=== PATIENT | female | born 1940 | race Caucasian/White ===

== ENCOUNTER → 2023-12-07 13:32 | Outpatient (REF) | payer MEDICARE, SELFPAY | LOC: HWRAD 13:32 | PROVIDERS: ATTENDING PHYSICIAN Internal Medicine Rheumatology; FAMILY PHYSICIAN Internal Medicine Geriatric Medicine | DX: M18.9 Osteoarthritis of first carpometacarpal joint, unspecified (principal); M47.816 Spondylosis without myelopathy or radiculopathy, lumbar region | CPT/HCPCS: 72110; 73130 ==

== ENCOUNTER 2024-04-14 10:27 | Emergency (ER) | payer MEDICARE, SELFPAY ==
[2024-04-14 10:32] VITALS: BP 173/73
--- NOTE | 2024-04-14 11:30 | ED.MUSCINJ ---
HPI-Injury
General
Chief Complaint: Musculo-Skeletal Complaint
Source: patient
Exam Limitations: none
Time Seen by Provider: 04/14/24 11:04
History of Present Illness-Injury
Initial Injury comments:
83-year-old female presents complaining of right leg pain that radiates from the down to the knee into the foot. This started after an exercise class earlier this week. The pain is centered at the knee. She also notes that her top of her right
foot feels numb. No headache no fever. No significant back pain no bowel or bladder dysfunction. She is ambulatory. No other complaints at this time
Past History
Past History
ED Past Medical History: GERD, Psychiatric and Other
ED Past Surgical History: Gynecological and Tonsilectomy
Social History
Tobacco: Non-smoker
Phy Exam
Physical Exam
Physical Exam:
General: Well-appearing female no acute respiratory distress
HEENT normocephalic atraumatic
Musculoskeletal exam: Patient is nonspecifically tender over the knee. She has good range of motion of the right hip knee and foot.
Neurologic exam: Good sensation right foot good strength to the lower extremities bilaterally
Vascular: No calf pain 2+ dorsalis pedis pulse right foot
Injury Course
Orders/Labs/Results
Orders:
Orders
04/14/24 10:35
Knee, Right 4 or More Views [CR Knee- Right 4 Or More View*] Urgent
Comment:
Reason For Exam: pain
MDM/Problems Addressed
Differential Diagnosis Includes:
Right knee and leg pain following exercise class. Consider knee sprain versus radiculopathy. No clinical concern for DVT.
X-ray of the knee was ordered through triage was I personally visualized and shows mild degenerative joint disease but no significant finding otherwise. The pain goes from the buttock to the knee into the foot. Do not suspect this is purely just a
knee issue. I do suspect this is more of a radiculopathy. She will be prescribed prednisone taper and will advise follow-up with orthopedics
*Critical Care Note
Total Time (30-74mins, 75-104mins- exclusive of procedures): Not Applicable
ED Attending Note
-
Portions of this chart may have been created with voice recognition software.� Occasional wrong word or��sound alike� substitutions may have occurred due to the inherent limitations of voice recognition software.
Discharge Plan
Departure
Patient Disposition: Home (Routine Discharge)
Date of Disposition: 04/14/24
Time of Disposition: 11:32
Patient with high blood pressure during this ER visit?: No
Discharge Problem:
Radiculopathy
Instructions: Muscle and Bone Pain (DC)
Prescriptions:
New
prednisone 10 mg Tablet
See Rx Instructions .ROUTE .COMPLEX Qty: 30 0RF
Rx Instructions:
Take By Mouth:
40 mg daily x3 days, 30 mg daily x3 days,
20 mg daily x3 days, 10 mg daily x3 days.
No Action
liothyronine 5 mcg tablet
5 mcg PO DAILY
levothyroxine 25 mcg tablet
25 mcg PO DAILY AT 0700
flaxseed oil 1,000 mg Capsule
1,000 mg PO DAILY
famotidine 20 mg tablet
20 mg PO DAILY
ascorbic acid (vitamin C) [Vitamin C] 500 mg Tablet
500 mg PO DAILY
vitamin B complex Tablet
1 tab PO DAILY
Visbiome 112.5 billion cell Capsule
1 cap PO DAILY
cholecalciferol (vitamin D3) [Vitamin D3] 50 mcg (2,000 unit) Capsule
50 mcg PO DAILY
theanine 200 mg Capsule
400 mg PO DAILY
Joint Health 40-10-5-3.3 mg Tablet
1 tab PO DAILY
tramadol 50 mg tablet
50 mg PO Q8H PRN (Reason: Mod Sev pain) Qty: 14 0RF
Referrals:
Alka Oropeza MD [Family Provider] -
Seth Arauz MD [Active] -
Activity Restrictions/Additional Instructions:
Take steroid taper as directed. You may take Tylenol for additional pain relief. Turn if worse otherwise follow-up with the orthopedic team
Interventions
Interventions:
*Risk Screen - Suicide Last Done: 04/14/24 10:57
*General Assessment Last Done: 04/14/24 10:57
*Neglect/Abuse Screening Last Done: 04/14/24 10:57
ED- Fall Risk Assessment Last Done: 04/14/24 10:57
*ED COVID-19 Vaccine History Last Done: 04/14/24 10:35
ED-Musculoskeletal Assessment Last Done: 04/14/24 10:57
Discharge Date and Time
Print Language: INDONESIAN
== END 2024-04-14 12:32 | disposition home or self-care (01) ==
LOC: EMR 10:27
PROVIDERS: EMERGENCY PHYSICIAN Student in an Organized Health Care Education/Training Program; FAMILY PHYSICIAN Internal Medicine Geriatric Medicine
DX: M54.10 Radiculopathy, site unspecified (principal); K21.9 Gastro-esophageal reflux disease without esophagitis
CPT/HCPCS: 99283; 73564

== ENCOUNTER → 2025-04-08 08:34 | Outpatient (REF) | payer MEDICARE, SELFPAY | LOC: HWRAD 08:34 | PROVIDERS: ATTENDING PHYSICIAN Urology; FAMILY PHYSICIAN Internal Medicine Geriatric Medicine | DX: Z14.8 Genetic carrier of other disease (principal) | CPT/HCPCS: 74150 ==

== ENCOUNTER → 2025-05-27 12:43 | Outpatient (REF) | payer MEDICARE, SELFPAY | LOC: HWRAD 12:43 | PROVIDERS: ATTENDING PHYSICIAN Urology; FAMILY PHYSICIAN Internal Medicine Geriatric Medicine | DX: Z14.8 Genetic carrier of other disease (principal) | CPT/HCPCS: 76775 ==

== ENCOUNTER → 2025-07-26 10:31 | Outpatient (REF) | payer MEDICARE, SELFPAY | LOC: HWRAD 10:31 | PROVIDERS: ATTENDING PHYSICIAN Internal Medicine Critical Care Medicine; FAMILY PHYSICIAN Internal Medicine Geriatric Medicine | DX: R93.89 Abnormal findings on diagnostic imaging of other specified body structures (principal); J84.9 Interstitial pulmonary disease, unspecified | CPT/HCPCS: 71250 ==

== ENCOUNTER 2025-08-21 17:28 | Emergency (ER) | payer MEDICARE, SELFPAY ==
[2025-08-21 17:34] VITALS: BP 173/80
[2025-08-21 17:51] LABS: Hematocrit 37.3 % (37.0-47.0); Hemoglobin 12.6 g/dL (12.0-16.0); Mean Corp Hgb Conc. 33.8 g/dL (33.0-37.0); Mean Corpuscular Volume 94.9 fL (81.0-99.0); Nucleated Red Blood Cells % 0 %; Platelet Count 202 10^3/uL (130-400); Red Cell Dist. Width 12.2 % (11.5-14.5)
[2025-08-21 18:09] LABS: ALT (SGPT) 21 U/L (0-35); AST (SGOT) 24 U/L (14-36); Albumin 4.3 g/dl (3.5-5.0); Alkaline Phosphatase 72 U/L (38-126); Blood Urea Nitrogen 15 mg/dl (7-17); Calcium 8.9 mg/dl (8.4-10.2); Carbon Dioxide 29 mmol/L (22-30); Glucose 85 mg/dl (70-99); Lipase 208 U/L (23-300); Total Protein 7.5 g/dl (6.3-8.2); eGFR > 60.00
[2025-08-21 18:23] LABS: Chloride 103 mmol/L (98-107); Potassium 4.5 mmol/L (3.5-5.1); Sodium 138 mmol/L (135-145)
[2025-08-21 20:03] VITALS: BMI 23.3
[2025-08-21 20:12] VITALS: BP 168/75
--- NOTE | 2025-08-21 20:40 | ED.GENMED ---
History of Present Illness
General
Chief Complaint: Abdominal Symptoms
Source: patient, records, spouse, previous radiology exam and previous hospital records
Exam Limitations: none
Time Seen by Provider: 08/21/25 20:09
History of Present Illness
History of Present Illness:
85-year-old female from [facility] referred to the ER for evaluation of abdominal pain somewhat sharp in her right upper into her right lower abdomen no prior episodes she has had bowel resection for diverticulitis?, Appendectomy as a child,
said no fever or chills she has intermittent constipation no vomiting pain is worse with movement, no hematuria
Past History
Past History
ED Past Medical History: GERD, Psychiatric and Other
ED Past Surgical History: Appendectomy, Bowel resection, Gynecological and Tonsilectomy
Social History
Tobacco: Non-smoker
Alcohol: None
Drug: None
Personal:
Living: with family
Employment: Retired
Review of Systems
Review of Systems
All Other Systems: Not applicable
Constitutional: Denies fever or fatigue
EENT: Reports no symptoms
Respiratory: Reports no symptoms
Cardiac: Reports no symptoms
ABD/GI: Reports abdominal pain and constipated; Denies nausea or vomiting
: Reports no symptoms
Musculoskeletal: Reports no symptoms
Skin: Reports no symptoms
Phy Exam
Physical Exam
Physical Exam:
Physical Exam
General: no apparent distress, not acutely ill
Neck: No icterus
Heart: s1/s2 regular rate and rhythm, no murmur. equal radial pulses.
Lungs: no acute respiratory distress. clear bilaterally
Abdomen: Tender in the right mid to right lower with distention
Neuro: alert and oriented. no focal neurological deficits
Skin: no rash
Psychiatric: well kept. interactive and cooperative
Extremities: no edema.
Course
Orders/Labs/Results
Orders:
Orders
08/21/25 17:42
Complete Blood Count/With Diff Urgent
Comprehensive Metabolic Panel Urgent
Lipase Urgent
08/21/25 20:38
HYDROmorphone [Dilaudid] 0.5 mg IV NOW STA
Ondansetron Injectable [Zofran] 4 mg IV NOW STA
08/21/25 20:39
Electrocardiogram (*1) Urgent
Reason for Study: Abdominal Pain
CT Abd/pelvis W Iv Cont Urgent
Comment:
Reason For Exam: pain
EKG- Treatment ONCE
08/21/25 23:22
Ondansetron Injectable [Zofran] 4 mg IV NOW STA
Abnormal Lab Results
08/21/25
17:42
RBC 3.93 L 10^6/uL
(4.20-5.40)
MCH 32.1 H pg
(27.0-31.0)
Absolute Monos (auto) 0.7 H 10^3/uL
(0.1-0.6)
08/21/25 17:42
08/21/25 17:42
Vital Signs
Initial and Last Documented VS:
Initial Vital Signs
Temp Pulse Resp BP Pulse Ox
97.8 F 70 16 173/80 95
08/21/25 17:34 08/21/25 17:34 08/21/25 17:34 08/21/25 17:34 08/21/25 17:34
Last Documented Vital Signs
Temp Pulse Resp BP Pulse Ox
97.8 F 58 18 169/62 93
08/21/25 17:34 08/21/25 20:12 08/21/25 20:12 08/21/25 23:52 08/21/25 23:52
MDM/Problems Addressed
Differential Diagnosis Includes:
Diverticulitis biliary colic nonspecific abdominal pain
MDM/Problems Addressed:
Abdominal
Chronic conditions affecting care: Previous abdomnial surgery
Acute Exacerbation and/or Progression of Chronic Illness: Previous abdomnial surgery
*Radiology
Radiology exam reviewed: radiology read reviewed
*Pulse Oximetry
SaO2: 96
Oxygen Mode of Delivery: Room air
Patient hypoxic: no
*EKG
Interpreted by ED Provider?: Yes
Interpretation: abnormal
Comparison EKG: no comparison EKG present
Heart Rate: 78
Rate: normal
Ischemia: non-specific ST changes
*[employer] Operator Interpretation
Rate: normal
Interpretation: normal
Heart Rate: 78
Rhythm: sinus
*Critical Care Note
Total Time (30-74mins, 75-104mins- exclusive of procedures): Not Applicable
ED Attending Note
-
Portions of this chart may have been created with voice recognition software.� Occasional wrong word or��sound alike� substitutions may have occurred due to the inherent limitations of voice recognition software.
Discharge Plan
Departure
Patient Disposition: Home (Routine Discharge)
Date of Disposition: 08/21/25
Time of Disposition: 23:32
Patient with high blood pressure during this ER visit?: No
Condition: Good
Discharge Problem:
Benign liver cyst, Abdominal pain
Instructions: Abdominal Pain
Prescriptions:
No Action
liothyronine 5 mcg tablet
5 mcg PO DAILY
levothyroxine 25 mcg tablet
25 mcg PO DAILY AT 0700
flaxseed oil 1,000 mg Capsule
1,000 mg PO DAILY
famotidine 20 mg tablet
20 mg PO DAILY
ascorbic acid (vitamin C) [Vitamin C] 500 mg Tablet
500 mg PO DAILY
vitamin B complex Tablet
1 tab PO DAILY
Visbiome 112.5 billion cell Capsule
1 cap PO DAILY
cholecalciferol (vitamin D3) [Vitamin D3] 50 mcg (2,000 unit) Capsule
50 mcg PO DAILY
theanine 200 mg Capsule
400 mg PO DAILY
Joint Health 40-10-5-3.3 mg Tablet
1 tab PO DAILY
tramadol 50 mg tablet
50 mg PO Q8H PRN (Reason: Mod Sev pain) Qty: 14 0RF
prednisone 10 mg Tablet
See Rx Instructions .ROUTE .COMPLEX Qty: 30 0RF
Rx Instructions:
Take By Mouth:
40 mg daily x3 days, 30 mg daily x3 days,
20 mg daily x3 days, 10 mg daily x3 days.
Referrals:
Deangelo Kang MD [Active, Surgical] - Next open appointment
Alka Oropeza MD [Family Provider, Internal Medicine] - Next open appointment
Activity Restrictions/Additional Instructions:
Tylenol as needed for pain
Followup with Dr Kang General surgeon
Return to the ER if worsening symptoms
Interventions
Interventions:
*Risk Screen - Suicide Last Done: 08/21/25 20:03
*General Assessment Last Done: 08/21/25 20:03
*Neglect/Abuse Screening Last Done: 08/21/25 20:03
*ED- Fall Risk Assessment Last Done: 08/21/25 20:03
*ED COVID-19 Vaccine History Last Done: 08/21/25 20:03
*ED Influenza Vaccine History Last Done: 08/21/25 20:03
*Nursing Disposition Last Done: 08/22/25 00:18
RV-Xjhqwk-Hiypnrdiqc Assessment Last Done: 08/21/25 20:07
Discharge Date and Time
Discharge Date/Time: 08/22/25 00:19
Print Language: CITIZEN [place]
[2025-08-21] MEDS: DILAUDID 0.5 MG IV (21:00)
[2025-08-21] MEDS: ZOFRAN 4 MG IV ×2 (21:00→23:30)
[2025-08-21 21:05] VITALS: BP 140/66
[2025-08-21 22:00] VITALS: BP 142/60
[2025-08-21 23:00] VITALS: BP 164/67
[2025-08-21 23:52] VITALS: BP 169/62
== END 2025-08-22 00:19 | disposition home or self-care (01) ==
LOC: EMR 17:28
PROVIDERS: Emergency Medicine; EMERGENCY PHYSICIAN Emergency Medicine; FAMILY PHYSICIAN Internal Medicine Geriatric Medicine
DX: K76.89 Other specified diseases of liver (principal); R10.11 Right upper quadrant pain; R10.31 Right lower quadrant pain; Z90.49 Acquired absence of other specified parts of digestive tract
CPT/HCPCS: 96374; 96375; 96376; 99284; 74177; 80053; 83690; 85025; 93005; Q9967

== ENCOUNTER → 2025-09-13 14:34 | Outpatient (REF) | payer MEDICARE, SELFPAY | LOC: RAD 14:34 | PROVIDERS: ATTENDING PHYSICIAN Internal Medicine Gastroenterology; FAMILY PHYSICIAN Internal Medicine Geriatric Medicine | DX: K76.89 Other specified diseases of liver (principal); S36.11 Injury of liver; R10.30 Lower abdominal pain, unspecified | CPT/HCPCS: 74178; Q9967 ==